=== PATIENT | male | born 1995 | race Caucasian/White ===

== ENCOUNTER 2017-06-28 18:22 | Emergency (ER) | payer MEDICAID | END 2017-06-28 19:12 | disposition home or self-care (01) | LOC: FTE 18:22 → E/R 19:12 | DX: H65.01 Acute serous otitis media, right ear (principal) | CPT/HCPCS: 99283; Z7502 ==

== ENCOUNTER 2017-08-12 15:04 | Emergency (ER) | payer MEDICAID | END 2017-08-12 18:52 | disposition home or self-care (01) | LOC: FTE 15:04 → E/R 18:52 | DX: H60.91 Unspecified otitis externa, right ear (principal) | CPT/HCPCS: 99283; Z7502 ==

== ENCOUNTER 2017-09-27 12:37 | Emergency (ER) | payer SELFPAY, MEDICAID | END 2017-09-27 13:13 | disposition home or self-care (01) | LOC: FTE 12:37 | DX: J06.9 Acute upper respiratory infection, unspecified (principal) | CPT/HCPCS: 99283 ==

== ENCOUNTER 2017-10-02 20:42 | Emergency (ER) | payer MEDICAID | END 2017-10-02 21:40 | disposition home or self-care (01) | LOC: E/R 21:40 | DX: J20.9 Acute bronchitis, unspecified (principal) | CPT/HCPCS: 99284; Z7502 ==

== ENCOUNTER 2018-01-11 20:41 | Emergency (ER) | payer SELFPAY, MEDICAID ==
[2018-01-11] MEDS: IBUPROFEN 600 MG TAB PO (22:13)
== END 2018-01-11 23:43 | disposition home or self-care (01) ==
LOC: FTE 20:41
DX: S61.216A Laceration without foreign body of right little finger without damage to nail, initial encounter (principal); W26.8XXA Contact with other sharp object(s), not elsewhere classified, initial encounter; Y92.9 Unspecified place or not applicable
CPT/HCPCS: 12001; 99282-25

== ENCOUNTER 2018-01-14 13:37 | Emergency (ER) | payer MEDICAID | END 2018-01-14 17:58 | disposition home or self-care (01) | LOC: FTE 13:37 | DX: Z48.01 Encounter for change or removal of surgical wound dressing (principal) | CPT/HCPCS: 99281; Z7502 ==